=== PATIENT | male | born 1995 | race Caucasian/White ===

== ENCOUNTER 2021-05-31 08:41 | Emergency (ER) | payer OTHER, SELFPAY ==
--- NOTE | ~2021-05-31 | XR_ITS ---
XR knee LT min 4V 05/31/2021 09:02 INDICATION: Left knee pain after twisting injury PROCEDURE: 4 views left knee COMPARISON: No prior studies for comparison. FINDINGS: Fracture, dislocation or subluxation is not identified. The soft tissues appear within norm al limits. No foreign bodies are identified. IMPRESSION: 1: NO ACUTE BONE OR JOINT ABNORMALITY IDENTIFIED. Reviewed, dictated and finalized at location A.
[2021-05-31 08:50] VITALS: BP 136/77; PULSE 118; RESP 16; TEMP 37.7; O2SAT 100
--- NOTE | 2021-05-31 09:00 | PC.NURSE ---
PT DECLINED ICE FOR COMFORT AND WHEELCHAIR TO RADIOLOGY
--- NOTE | 2021-05-31 09:11 | ED.GENADULT ---
HPI - General Adult General Chief complaint: Extremity Injury, Lower Stated complaint: Left knee injury Time Seen by Provider: 05/31/21 08:45 Source: patient Mode of arrival: ambulatory Limitations: no limitations History of Present Illness HPI narrative: Patient presents for evaluation of left knee pain. Symptom onset yesterday. He indicates he was crouched down and when he went to stand up he twisted his knee. He heard and felt a pop . He states pain has been constant since that time. Pain is sharp, 7/10 in severity, and increasing in severity with movement. He states pain initially radiated throughout his entire body. He tried taking 400mg ibuprofen without considerable improvement in his symptoms thereafter. Movement makes his pain worse. Related Data Allergies Allergy/AdvReac Type Severity Reaction Status Date / Time No Known Allergies Allergy Verified 05/31/21 09:05 Review of Systems Review of Systems: CONSTITUTIONAL: Denies fever, chills, or sweats. EYES: Denies visual changes, redness, or discharge. ENT: Denies rhinorrhea, congestion, sore throat, or otalgia. CARDIOVASCULAR: Denies chest pain, palpitations, or edema. RESPIRATORY: Denies cough or dyspnea. GASTROINTESTINAL: Denies abdominal pain, nausea, vomiting, or diarrhea. GENITOURINARY: Denies dysuria or hematuria. SKIN: Denies rash or itching. MUSCULOSKELETAL: Reports left knee pain. Denies back pain or myalgia. NEUROLOGIC: Denies headache, numbness, dizziness, or weakness. PSYCHIATRIC: Denies anxiety or depression. [facility] Past Medical History Medical History (Updated 05/31/21 @ 09:36 by DIPIKA Gaona, ) Knee sprain No pertinent past medical history Surgical History Surgical History No pertinent past surgical history Family History Family History Mother No pertinent family history Social History Social History Smoking status: Never smoker Alcohol intake: never Substance use: never Additional living arrangements comments: Lives with fiance Gender identity (if verbalized by the patient): Male Sexual Orientation (if Verbalized by the Patient): Straight or Heterosexual Spiritual care concerns: No Exam Narrative: GENERAL: Well-appearing, well-nourished, and in no acute distress. HEAD: Normocephalic, atraumatic. EYES: PERRLA and EOMI. ENT: Nares clear, no rhinorrhea or epistaxis. Mucous membranes moist. Oropharynx without tonsillar hypertrophy exudate or other lesions. Bilateral TMs pearly horton nonbulging NECK: Supple. No adenopathy or masses. No carotid bruits or JVD CHEST: Clear to auscultation. No respiratory distress. No wheezes rales or rhonchi HEART: Regular rate and rhythm. No murmur heard. Normal peripheral pulses. ABDOMEN: Soft, nontender, nondistended, normal active bowel sounds. EXTREMITIES:Tenderness noted to anterior, medial and lateral aspect of the knee. Decreased ROM of left knee. No crepitus, deformity or significant swelling. No overt joint laxity SKIN: Warm, dry, no rash. NEURO: No focal deficits. Alert and oriented x3. PSYCH: Normal mood and affect. Course Course Emergency Course: This is a 25-year-old male who presented with complaints of left knee pain. X-ray was negative for fracture. I suspect that he has a soft tissue injury. Unfortunately, we do not have a knee brace here for him. He had ele wrap applied. Advised he follow up with ortho this coming week. He was given ibuprofen while here. Will dc with ibuprofen and tramadol. Was instructed to purchase a hinge knee brace of knee immobilizer. Pt in agreement with plan of care. Level of Care: Express Care Visit Vital Signs Vital signs: Vital Signs Temperature 37.7 C H 05/31/21 08:50 Pulse Rate 118 H 05/31/21 08:50 Respiratory Rate 16 05/31/21 08:5
[2021-05-31] MEDS: IBUPROFEN 400 MG TABLET 800 MG PO (09:21)
== END 2021-05-31 09:40 | disposition home or self-care (01) ==
PROVIDERS: Emergency Provider Nurse Practitioner
DX: S83.92XA Sprain of unspecified site of left knee, initial encounter (principal); X50.9XXA Other and unspecified overexertion or strenuous movements or postures, initial encounter
CPT/HCPCS: 73564; 99213; A9270; G0463